=== PATIENT | female | born 2005 | race African-American/Black ===

== ENCOUNTER 2025-01-25 10:10 | Emergency (ER) | payer OTHER ==
[~2025-01-25] VITALS: Ht 175.3 cm; Wt 97.5 kg
[2025-01-25] MEDS ORDERED: CLIN300 PO (10:30)
[2025-01-26] MEDS ORDERED: AMOCLA875 PO (14:57)
== END 2025-01-25 10:34 | disposition home or self-care (01) ==
LOC: ER 10:10
DX: K04.7 Periapical abscess without sinus (principal); L03.211 Cellulitis of face; Z79.2 Long term (current) use of antibiotics
CPT/HCPCS: 99282

== ENCOUNTER 2025-01-26 11:43 | Emergency (ER) | payer OTHER ==
[~2025-01-26] VITALS: Ht 175.3 cm; Wt 113.4 kg
[~2025-01-26 11:43] MED LIST: CLIN300 PO
[2025-01-26] MEDS ORDERED: Ampicillin Sod/Sulbactam Sod 3 GM in NS 100 ML IV ONE (12:45)
[2025-01-26 13:54] LABS: BASOPHILS ABSOLUTE AUTO 0.05 K/mm3 (0.00-0.23); BASOPHILS PERCENT AUTO 1 % (0-2); EOSINOPHILS ABSOLUTE AUTO 0.11 K/mm3 (0.00-0.68); EOSINOPHILS PERCENT AUTO 1 % (0-6); Hematocrit 40.7 % (33.0-51.0); Hemoglobin 13.3 g/dL (11.5-16.0); IMMATURE GRAN ABSOLUTE AUTO 0.04 K/mm3 (0.00-0.10); IMMATURE GRAN PERCENT AUTO 1 % (0-1); LYMPHOCYTES ABSOLUTE AUTO 1.89 K/mm3 (0.84-5.20); LYMPHOCYTES PERCENT AUTO 23 % (21-46); MONOCYTES ABSOLUTE AUTO 0.88 K/mm3 (0.16-1.47); MONOCYTES PERCENT AUTO 11 % (4-13); Mean Corpuscular HGB Conc 32.7 g/dL (31.5-36.5); Mean Corpuscular Volume 83 fL (80-100); NEUTROPHILS ABSOLUTE AUTO 5.09 K/mm3 (1.96-9.15); NEUTROPHILS PERCENT AUTO 63 % (41-73); NRBC ABSOLUTE 0.00 K/mm3 (0.00-0.02); NRBC Auto 0.0 /100 WBC (0.0-0.2); Platelet Count 230 K/mm3 (150-400); RDW Coefficient Variation 13.2 % (11.7-14.2); RDW Standard Deviation 39.8 fL (35.1-46.3)
[2025-01-26 14:22] LABS: Alanine Aminotransfer (ALT/SGP 41.0 U/L (12-78); Albumin, Blood 3.9 g/dL (3.4-5.0); Albumin/Globulin Ratio 1.1 (0.8-1.8); Anion Gap 6.0 mmol/L (3-11); Aspartate Aminotrans (AST/SGOT 21.0 U/L (12-37); Bilirubin, Total 0.7 mg/dL (0.1-1.0); Blood Urea Nitrogen 13.0 mg/dL (8-21); CO2, Blood 26.0 mmol/L (21-32); Calcium, Blood 9.2 mg/dL (8.5-10.1); Chloride, Blood 110.0 mmol/L (98-108); Creatinine, Blood 0.76 mg/dL (0.40-1.00); Globulin, Blood 3.6 g/dL (2.2-4.0); Glucose, Blood 85.0 mg/dL (70-99); Potassium, Blood 4.0 mmol/L (3.5-5.5); Sodium, Blood 138.0 mmol/L (136-145); Total Protein, Blood 7.5 g/dL (6.4-8.2)
[2025-01-26] MEDS ORDERED: AMOCLA875 PO (14:57)
== END 2025-01-26 15:07 | disposition home or self-care (01) ==
LOC: ER 11:43
PROVIDERS: Emergency Medicine
DX: K04.7 Periapical abscess without sinus (principal); L03.211 Cellulitis of face
CPT/HCPCS: 80053; 85025; 96365; 99283-25; A9270; J0295